=== PATIENT | female | born 1990 | race Asian ===

== ENCOUNTER 2019-09-03 01:37 | Inpatient (IN) | payer OTHER ==
[~2019-09-03] VITALS: Ht 160 cm; Wt 69.1 kg
[2019-09-03] MEDS ORDERED: PREN-18 PO (01:45)
[2019-09-03] MEDS ORDERED: SODIUM CHLORIDE 0.9% 1,000 ML IV ONE (03:00)
[2019-09-03] MEDS ORDERED: ACETAMINOPHEN 500 MG TABLET PO ONE (03:00)
[2019-09-03 03:06] LABS: BASOPHILS % (AUTO) 0.2 % (0.0-2.0); EOSINOPHILS % (AUTO) 0.4 % (1.0-6.0); HEMATOCRIT 36.1 % (36-46); HEMOGLOBIN 11.9 g/dL (12.0-16.0); LYMPHOCYTES # (AUTO) 2.1 K/uL (1.0-4.8); LYMPHOCYTES % (AUTO) 8.4 % (22.0-44.0); MEAN CORPUSCULAR HEMOGLOBIN 26.5 pg (26.0-34.0); MEAN CORPUSCULAR HGB CONC 32.9 G/dL (31.0-37.0); MEAN CORPUSCULAR VOLUME 80 fL (80-100); MONOCYTES # (AUTO) 0.9 K/uL (0.1-1.0); MONOCYTES % (AUTO) 3.7 % (2.0-9.0); PLATELET COUNT (AUTO) 326 K/uL (150-450); RED BLOOD CELL COUNT(AUTO) 4.49 MIL/uL (4.00-5.20); RED CELL DISTRIBUTION WIDTH 19.8 % (11.5-14.5)
[2019-09-03 03:07] LABS: NEUTROPHILS % (AUTO) 87.3 % (40.0-70.0)
[2019-09-03 03:17] LABS: ANION GAP 9 mmol/L (8-16); CALCIUM, TOTAL 9.3 mg/dL (8.8-10.5); CARBON DIOXIDE 26 mmol/L (22-29); CHLORIDE 100 mmol/L (98-107); CREATININE 0.63 mg/dL (0.60-1.30); GLOMERULAR FILTR. RATE CALC > 60 mL/min (>60); GLUCOSE,RANDOM 98 mg/dL (70-110); POTASSIUM 3.7 mmol/L (3.5-5.1); SODIUM SERUM 135 mmol/L (136-145); UREA NITROGEN, BLOOD 7 mg/dL (7-18)
[2019-09-03 03:23] LABS: ALANINE AMINOTRANSFERASE 26 U/L (12-78); ALBUMIN 2.9 g/dL (3.4-5.0); ALKALINE PHOSPHATASE 73 U/L (46-116); ASPARTATE AMINOTRANSFERASE 16 U/L (15-37); TOTAL PROTEIN, SERUM 7.3 g/dL (6.4-8.2)
[2019-09-03 03:35] LABS: BILIRUBIN,TOTAL 0.2 mg/dL (0.1-1.0)
[2019-09-03] MEDS ORDERED: 0.9% SODIUM CHLORIDE 10 ML SYRINGE IVP PRN (03:45)
[2019-09-03] MEDS ORDERED: ACETAMINOPHEN 325 MG TABLET PO PRN (03:45)
[2019-09-03] MEDS ORDERED: ONDANSETRON HCL 4 MG/2 ML VIAL IVP PRN (03:45)
[2019-09-03 03:50] VITALS: BP 127/68
[2019-09-03] MEDS ORDERED: MISOPROSTOL 100 MCG TABLET PR ONE (04:00)
[2019-09-03] MEDS ORDERED: CHLORHEXIDINE GLUCONATE 4% 118 ML TOPICAL LIQUID TP PRN (06:15)
[2019-09-03] MEDS ORDERED: IBUPROFEN 600 MG TABLET PO ONE (08:45)
== END 2019-09-03 10:50 | disposition home or self-care (01) | DRG 779 ==
LOC: EMS 01:42 → 4S 03:00
PROVIDERS: ADMIT Obstetrics & Gynecology; ATTEND Obstetrics & Gynecology
PROC: 10E0XZZ Delivery of Products of Conception, External Approach (ICD-10-PCS; principal; 2019-09-03)
DX: O02.1 Missed abortion (principal); Z3A.15 15 weeks gestation of pregnancy
CPT/HCPCS: 76805; 86901; 88307; J7030

== ENCOUNTER 2019-12-01 17:04 | Emergency (ER) | payer OTHER ==
[~2019-12-01] VITALS: Ht 162.6 cm; Wt 70.5 kg
[2019-12-01 18:15] LABS: BASOPHILS % (AUTO) 0.9 % (0.0-2.0); EOSINOPHILS % (AUTO) 0.6 % (1.0-6.0); HEMATOCRIT 36.9 % (36-46); HEMOGLOBIN 12.3 g/dL (12.0-16.0); LYMPHOCYTES # (AUTO) 3.3 K/uL (1.0-4.8); LYMPHOCYTES % (AUTO) 20.7 % (22.0-44.0); MEAN CORPUSCULAR HEMOGLOBIN 28.3 pg (26.0-34.0); MEAN CORPUSCULAR HGB CONC 33.3 G/dL (31.0-37.0); MEAN CORPUSCULAR VOLUME 85 fL (80-100); MONOCYTES # (AUTO) 0.9 K/uL (0.1-1.0); MONOCYTES % (AUTO) 5.6 % (2.0-9.0); NEUTROPHILS # (AUTO) 11.6 K/uL (1.8-7.7); NEUTROPHILS % (AUTO) 72.2 % (40.0-70.0); PLATELET COUNT (AUTO) 397 K/uL (150-450); RED BLOOD CELL COUNT(AUTO) 4.34 MIL/uL (4.00-5.20); RED CELL DISTRIBUTION WIDTH 13.9 % (11.5-14.5)
[2019-12-01] MEDS ORDERED: SODIUM CHLORIDE 0.9% 1,000 ML IV ONE ×2 (18:15→22:00)
[2019-12-01] MEDS ORDERED: ACETAMINOPHEN 325 MG TABLET PO ONE (18:15)
[2019-12-01 20:50] LABS: APPEARANCE,URINE TURBID (CLEAR); GLUCOSE, URINE (UA) NEGATIVE (NEGATIVE); KETONES,URINE 15 mg/dL (NEGATIVE); LEUKOCYTE ESTERASE ,URINE MODERATE (NEGATIVE); NITRATE,URINE POSITIVE (NEGATIVE); OCCULT BLOOD,URINE LARGE (NEGATIVE); PROTEIN,URINE SEE CONFIRM (NEGATIVE)
[2019-12-01 21:01] LABS: BILIRUBIN,URINE PRELIM. POSITIVE (NEGATIVE)
[2019-12-01 21:03] LABS: SULFOSALICYLIC ACID,URINE 4+ (Negative)
[2019-12-01 21:07] LABS: BACTERIA,URINE Moderate /HPF (None Seen); RBC,URINE Full Field /HPF (0-2)
[2019-12-01 21:08] LABS: SQUAMOUS EPITHELIAL CELL,UR Rare /LPF (None Seen)
[2019-12-01] MEDS ORDERED: CEPHALEXIN MONOHYDRATE 500 MG CAPSULE PO ONE (21:45)
[2019-12-01 22:52] VITALS: BP 137/76
== END 2019-12-01 22:50 | disposition home or self-care (01) ==
LOC: EMS 17:07
DX: O20.0 Threatened abortion (principal); O26.891 Other specified pregnancy related conditions, first trimester; R10.9 Unspecified abdominal pain; Z3A.01 Less than 8 weeks gestation of pregnancy
CPT/HCPCS: 36415; 76801; 76817; 81001; 84702; 85025; 86901; 87086; 99284; J7030